=== PATIENT | female | born 1965 | race African-American/Black ===

== ENCOUNTER 2020-05-10 07:58 | Day surgery (SDC) | payer MEDICARE, MEDICAID ==
[2020-05-07 11:43] LABS: HEMATOCRIT 35.9 % (36.0-47.0); MEAN CORPUSCULAR HEMOGLOBIN 28.5 pg (27.0-33.4); MEAN CORPUSCULAR HGB CONC 33.4 g/dL (32.0-36.0); MEAN CORPUSCULAR VOLUME 85 fl (80-97); PLATELET COUNT 236 10^3/uL (150-450); RED CELL DISTRIBUTION WIDTH 13.5 % (11.5-14.0); WHITE BLOOD COUNT 6.9 10^3/uL (4.0-10.5)
[2020-05-07 12:13] LABS: ANION GAP 10 (5-19); BLOOD UREA NITROGEN 14 mg/dL (7-20); CALCIUM 10.1 mg/dL (8.4-10.2); CARBON DIOXIDE 30 mmol/L (22-30); CHLORIDE 100 mmol/L (98-107); GLUCOSE 82 mg/dL (75-110); POTASSIUM 4.2 mmol/L (3.6-5.0)
--- NOTE | 2020-05-07 15:17 | EKG REPORT ---
SEVERITY:- ABNORMAL ECG - SINUS RHYTHM FIRST DEGREE AV BLOCK NONSPECIFIC T ABNORMALITIES, ANT-LAT LEADS : Confirmed by: Yanelis Mortensen MD 07-May-2020 15:16:55
--- NOTE | 2020-05-07 18:50 | RADIOLOGY REPORT (SQ) ---
EXAM DESCRIPTION: CHEST PA/LATERAL IMAGES COMPLETED DATE/TIME: 05/07/2020 11:11 am REASON FOR STUDY: PRE-OP COMPARISON: 2016 EXAM PARAMETERS: NUMBER OF VIEWS: two views TECHNIQUE: Digital Frontal and Lateral radiographic views of the chest acquired. RADIATION DOSE: NA LIMITATIONS: none FINDINGS: LUNGS AND PLEURA: No opacities, masses or pneumothorax. No pleural effusion. MEDIASTINUM AND HILAR STRUCTURES: No masses or contour abnormalities. HEART AND VASCULAR STRUCTURES: The heart size is borderline. There is no pulmonary edema. BONES: No acute findings. HARDWARE: Sternotomy wires. OTHER: No other significant finding. IMPRESSION: Borderline heart size. No pulmonary edema. No acute pulmonary findings. TECHNICAL DOCUMENTATION: JOB ID: [id number] 2010 [employer]- All Rights Reserved Reading location - IP/workstation name: [email or web address]
[~2020-05-10 07:58] MED LIST: ACETAMINOPHEN 325 MG TABLET PO PRN; CEFAZOLIN 2 GM/D5W RTU 2 GM/50 ML RTUPB IV PRN; IBUPROFEN 800 MG in NORMAL SALINE 250 ML IV PRN; LACTATED RINGERS 1000 ML IV PRN; LIDOCAINE 0.5% INJ-PF (5 MG/ML) 50 ML SDV SUBCUT PRN
[2020-05-10 09:38] LABS: INTERNATIONAL RATION (INR) 1.13; PROTHROMBIN TIME 14.7 SEC (11.4-15.4)
[2020-05-10] MEDS ORDERED: ACETAMINOPHEN 325 MG TABLET ONE (09:38)
[2020-05-10] MEDS ORDERED: CEFAZOLIN 2 GM/D5W RTU 2 GM/50 ML RTUPB IV ONE (09:38)
[2020-05-10 09:39] LABS: PARTIAL THROMBOPLASTIN TIME 31.6 SEC (23.5-35.8)
[2020-05-10] MEDS ORDERED: LIDOCAINE 1% INJ-PF (10 MG/ML) 30 ML SDV ONE (11:37)
[2020-05-10] MEDS ORDERED: BUPIVACAINE HCL 0.25 % INJ/PF (2.5 MG/1 ML) 30 ML VIAL ONE (11:37)
[2020-05-10] MEDS ORDERED: MIDAZOLAM 2 MG/2 ML INJ ONE (11:41)
[2020-05-10] MEDS ORDERED: KETAMINE HCL INJ 500 MG/10 ML VIAL ONE (11:41)
[2020-05-10] MEDS ORDERED: HYDROMORPHONE HCL INJ/PF 2 MG/ML AMPULE ONE (11:41)
[2020-05-10] MEDS ORDERED: PROPOFOL INJ 200 MG/20 ML VIAL IV ONE (11:42)
[2020-05-10] MEDS ORDERED: DIPHENHYDRAMINE HCL 50 MG/ML VIAL IV PRN (12:45)
[2020-05-10] MEDS ORDERED: FENTANYL CITRATE INJ/PF 100 MCG/2 ML AMPUL IV PRN ×3 (12:45)
[2020-05-10] MEDS ORDERED: MEPERIDINE HCL/PF INJ 25 MG/1 ML DISP.SYRIN IV PRN (12:45)
[2020-05-10] MEDS ORDERED: PROMETHAZINE HCL INJ 25 MG/1 ML VIAL IV PRN ×2 (12:45)
--- NOTE | 2020-05-10 13:14 | Operative Report ---
Nonrecallable Operative Report DATE OF SURGERY: 05/10/20 PREOPERATIVE DIAGNOSIS: 1. Large infected sebaceous cyst of the back. 2. Small sebaceous cyst of the posterior scalp POSTOPERATIVE DIAGNOSIS: Same as above OPERATION: 1. Excision of large 7 cm infected cyst of the left upper back. 2. Excision of a 2 cm posterior scalp cyst SURGEON: GIOVANI LAFLEUR 1ST [employer] MANAGING: ROSY FLOREZ ANESTHESIA: LMAC TISSUE REMOVED OR ALTERED: 1. Posterior scalp cyst, 2 cm. 2. Left upper back cyst, 7 cm, infected COMPLICATIONS: None apparent ESTIMATED BLOOD LOSS: 100 cc PROCEDURE: Drains/implants: 4 x 4 soaked in Betadine packed into the large back cyst cavity. Procedure in detail: After informed consent was obtained, the patient was brought into the operating room and laid in the right lateral decubitus position. The posterior back and posterior scalp were prepped and draped in a normal sterile fashion. An elliptical incision was created over the 2 cm scalp cyst. The scalp was excised from the subcutaneous tissues using sharp dissection. Hemostasis was achieved using electrocautery. 3-0 Vicryl sutures were then used in interrupted subcuticular fashion to close the skin. A dressing was placed, and attention was turned to the large back cyst. Elliptical incision was created over the 7 cm back cyst. Dissection was carried through the subcutaneous tissues, down to the muscles of the back, using sharp dissection and electrocautery. The cyst was entered, revealing a large amount of purulent material. The cyst was removed completely from the patient. The wound was irrigated. Hemostasis was achieved using electrocautery and suture ligation. The middle of the incision was loosely reapproximated using 3-0 Vicryl suture in interrupted, subcuticular fashion. 4 x 4's soaked in Betadine were packed on either side of the incision. Dressings were placed, and the pr ocedure was concluded. All sponge, instrument, and needle counts were correct x2. Condition: Stable. Rosy Florez PA-C was scrubbed and present the entirety of the procedure. She assisted with all portions of the procedure including opening of the skin, dissection of the cysts, closure of the skin.
--- NOTE | 2020-05-10 13:21 | Discharge Summary ---
Discharge Summary (SDC) - Discharge Final Diagnosis: Large infected sebaceous cyst of the back. Small sebaceous cyst of the posterior scalp. Date of Surgery: 05/10/20 Discharge Date: 05/10/20 Condition: Stable Treatment or Instructions: Discharge home. Diet as tolerated. Activity: Nonstrenuous. Follow-up with [facility] in 7 to 10 days. Garvin 10/325 mg p.o. every 6 hours as needed for pain. Remove packing tomorrow and place dry dressing over top. Okay to use Neosporin. Okay to shower on Wednesday. Okay to restart Plavix on Wednesday Prescriptions: Hydrocodone/Acetaminophen [Garvin 10-325 mg Tablet] 1 tab PO Q6HP PRN #14 tablet PRN Reason: For Pain Referrals: MARCE BLACK PA-C [Primary Care Provider] - Discharge Diet: As Tolerated Respiratory Treatments at Home: Deep Breathing/Coughing, Incentive Spirometer Discharge Activity: Balance Activity w/Rest Home Care Assistance: None Needed Report the Following to Your Physician Immediately: Shortness of Breath, Nausea, Vomiting, Increase in Pain, Fever over 101 Degrees, Unusual Bleeding, Redness
[2020-05-10] MEDS ORDERED: GLYCOPYRROLATE 1 MG/5 ML VIAL ONE (15:38)
[2020-05-10 16:00] VITALS: BP 130/83
== END 2020-05-10 14:35 | disposition home or self-care (01) ==
LOC: OROUT 07:58
PROVIDERS: ATTEND Surgery
DX: L72.3 Sebaceous cyst (principal); Z20.828 Contact with and (suspected) exposure to other viral communicable diseases; I10 Essential (primary) hypertension; I25.10 Atherosclerotic heart disease of native coronary artery without angina pectoris; J45.909 Unspecified asthma, uncomplicated; E66.9 Obesity, unspecified; I25.2 Old myocardial infarction; Z79.82 Long term (current) use of aspirin; Z79.899 Other long term (current) drug therapy; Z95.1 Presence of aortocoronary bypass graft; Z79.01 Long term (current) use of anticoagulants; Z95.5 Presence of coronary angioplasty implant and graft
CPT/HCPCS: 93005; 36415 ×2; 84132; 85027; 85610; 85730; 80048; 71046; 93010; 11422; 11406; U0003; A9270; J2250; J3490 ×3; J1170; J7050; J2704; J0690; J1741; C9803; 300; 87635